=== PATIENT | male | born 1945 | race Caucasian/White ===

== ENCOUNTER → 2024-11-08 12:58 | Outpatient (REF) | payer MEDICARE, SELFPAY | LOC: HWRAD 12:58 | PROVIDERS: ATTENDING PHYSICIAN Internal Medicine | DX: S09.90XA Unspecified injury of head, initial encounter (principal) | CPT/HCPCS: 70450 ==

== ENCOUNTER 2024-12-02 22:39 | Emergency (ER) | payer MEDICARE, SELFPAY ==
[2024-12-02 22:42] VITALS: BP 143/67
[2024-12-02 23:35] LABS: % Basophils 0.4 % (0-2); % Eosinophils 0.4 % (0-6); % Immature Granulocytes 0.4 % (0-0.5); % Lymphocytes 14.6 % (20.5-51.1); % Monocytes 8.2 % (1.7-9.3); Absolute Lymphocytes 1.2 10^3/uL (1.2-3.4); Absolute Monocytes 0.7 10^3/uL (0.1-0.6); Absolute Neutrophils 6.5 10^3/uL (1.4-6.5); Hematocrit 37.8 % (39.0-52.0); Hemoglobin 13.7 g/dL (13.0-18.0); Mean Corp Hgb Conc. 36.2 g/dL (33.0-37.0); Mean Corpuscular Hgb 33.7 pg (27.0-31.0); Mean Corpuscular Volume 93.1 fL (80.0-94.0); Mean Platelet Volume 9.6 fL (7.4-10.4); Nucleated Red Blood Cells % 0 % (-); Platelet Count 282 10^3/uL (130-400); Red Blood Cell Count 4.06 10^6/uL (4.70-6.10); White Blood Cell Count 8.5 10^3/uL (4.8-10.8)
[2024-12-02 23:48] LABS: ALT (SGPT) < 10 U/L (0-50); AST (SGOT) 22 U/L (17-59); Albumin 4.2 g/dl (3.5-5.0); Alkaline Phosphatase 56 U/L (38-126); Blood Urea Nitrogen 28 mg/dl (9-20); Calcium 9.5 mg/dl (8.4-10.2); Carbon Dioxide 20 mmol/L (22-30); Chloride 106 mmol/L (98-107); Glucose 100 mg/dl (70-99); Potassium 3.8 mmol/L (3.5-5.1); Sodium 134 mmol/L (135-145); Total Bilirubin 1.2 mg/dl (0.2-1.3); Total Protein 6.5 g/dl (6.3-8.2); eGFR > 60.00
[2024-12-02 23:53] VITALS: BMI 21.4
--- NOTE | 2024-12-03 01:21 | ED.GENMED ---
History of Present Illness
General
Chief Complaint: Medication Reaction
Time Seen by Provider: 12/03/24 01:21
History of Present Illness
History of Present Illness:
TIME OF INITIAL ENCOUNTER: 1:25 AM
HPI: The patient has a history of Parkinson's. About a week ago, he was a the ER in [place] due to severe anxiety. reports a one-time dose of IV Ativan with dramatic improvement of his symptoms. They did not give any prescription. He was
doing well until this morning when he started having severe anxiety again. He could not calm himself down. They called [facility] where his neurologist is after 5 PM today and they told the that they will likely put him on anxiety medication
tomorrow but he does not have anything now. They are requesting another of Ativan to help his symptoms.
EXAM:
GENERAL: The patient appears very anxious with marked abnormal movements
HEENT: Moist oral mucosa
CARDIOVASCULAR: No murmurs, normal heart rate, regular rhythm, No chest wall tenderness
PULMONARY: The patient is hyperventilating however his breath sounds are clear and equal
ABDOMEN: Soft with no peritoneal signs, no tenderness
NEUROLOGIC: Coarse tremor, poor coordination
PSYCHIATRIC: Appears severely anxious
EXTREMITIES: Nontender, no edema, moves all extremities equally
SKIN: No rash, no lesions
NUMBER AND COMPLEXITY OF PROBLEMS ADDRESSED AT THE ENCOUNTER
� Chronic conditions affecting care: Parkinson's, anxiety
� Acute Exacerbation and/or Progression of Chronic Illness: This is an acute problem
� Differential Diagnosis includes: Anxiety, worsening Parkinson's
AMOUNT AND/OR COMPLEXITY OF DATA TO BE REVIEWED AND ANALYZED
� I performed an independent evaluation of and my interpretation is:
EKG:
CT:
X-rays:
Laboratory Studies: CBC normal, sodium 134, bicarb 20, BUN 28
Other:
� Review of other/old records: CAT scan of the brain from 11/08/2024 is unremarkable
� Clinical information was obtained by an independent historian: Spoke to the at bedside
� Prescriptions/Medications Considered but not given:
� Further testing considered but not performed:
RISK OF COMPLICATIONS AND/OR MORBIDITY OR MORTALITY OF PATIENT MANAGEMENT
� Social determinants of health affecting care: Lives at home
� Discussion with other providers:
� Escalation of care including admission/observation vs risk of discharge considered:
ANY OTHER UPDATES:
3:11 AM: I reassessed patient. He is resting comfortably, no further abnormal movements, he no longer appears anxious. Recommend against daily benzos�they will call their doctors through [facility] again tomorrow.
Phy Exam
Physical Exam
Physical Exam:
See HPI
Course
Orders/Labs/Results
Orders:
Orders
12/02/24 23:29
Complete Blood Count/With Diff Urgent
Comprehensive Metabolic Panel Urgent
12/03/24 01:29
Lorazepam [Ativan] 1 mg IV NOW STA
Abnormal Lab Results
12/02/24
23:29
RBC 4.06 L 10^6/uL
(4.70-6.10)
Hct 37.8 L %
(39.0-52.0)
MCH 33.7 H pg
(27.0-31.0)
Absolute Monos (auto) 0.7 H 10^3/uL
(0.1-0.6)
Neutrophils % 76.0 H %
(42.2-75.2)
Lymphocytes % 14.6 L %
(20.5-51.1)
Sodium 134 L mmol/L
(135-145)
Carbon Dioxide 20 L mmol/L
(22-30)
BUN 28 H mg/dl
(9-20)
Glucose 100 H mg/dl
(70-99)
12/02/24 23:29
12/02/24 23:29
Vital Signs
Initial and Last Documented VS:
Initial Vital Signs
Temp Pulse Resp BP Pulse Ox
36.3 C 84 18 143/67 100
12/02/24 22:42 12/02/24 22:42 12/02/24 22:42 12/02/24 22:42 12/02/24 22:42
Last Documented Vital Signs
Temp Pulse Resp BP Pulse Ox
36.3 C 84 18 143/67 100
12/02/24 22:42 12/02/24 22:42 12/02/24 22:42 12/02/24 22:42 12/02/24 22:42
*Critical Care Note
Total Time (30-74mins, 75-104mins- exclusive of procedures): Not Applicable
ED Attending Note
-
Portions of this chart may have been created with voice recognition software.� Occasional wrong word or��sound alike� substitutions may have occurred due to the inherent limitations of voice recognition software.
Discharge Plan
Departure
Referrals:
Renan Tsang MD [Family Provider] -
Interventions
Interventions:
*Risk Screen - Suicide Last Done: 12/03/24 01:00
*Neglect/Abuse Screening Last Done: 12/03/24 01:00
ED- Fall Risk Assessment Last Done: 12/03/24 01:00
ED-EENT Assessment Last Done: 12/03/24 02:43
ED- Pulmonary Assessment Last Done: 12/03/24 01:00
ED-Skin Assessment Last Done: 12/03/24 01:00
Discharge Date and Time
Print Language: DANISH
[2024-12-03] MEDS: ATIVAN 1 MG IV (01:35)
--- NOTE | 2024-12-03 02:43 | EDRN ---
Patient reports starting to feel better
== END 2024-12-03 03:57 | disposition home or self-care (01) ==
LOC: EMR 22:39
PROVIDERS: Emergency Medicine; EMERGENCY PHYSICIAN Emergency Medicine; FAMILY PHYSICIAN Internal Medicine
DX: F41.9 Anxiety disorder, unspecified (principal); G20.A1 Parkinson's disease without dyskinesia, without mention of fluctuations
CPT/HCPCS: 99283; 80053; 85025